=== PATIENT | male | born 1950 | race Caucasian/White ===

== ENCOUNTER 2018-04-19 10:59 | Emergency (ER) | payer OTHER, MEDICARE ==
--- NOTE | 2018-04-19 11:38 | EDM.PDOC ---
ED HPI GENERAL MEDICAL PROBLEM - General Chief Complaint: General Stated Complaint: DIZZY/ FELL /HEAD INJURY Time Seen by Provider: 04/19/18 11:38 Source of Information: Reports: Patient History Limitations: Reports: No Limitations - History of Present Illness INITIAL COMMENTS - FREE TEXT/NARRATIVE: 68-year-old male presents for evaluation and treatment of injuries following a syncopal episode. Reportedly episode happened around 10 AM this morning. Reports he was at work changing a valve when he suddenly felt dizzy and fell backwards hitting his head on concrete. He is reporting a headache at this time. Unsure how long he was passed out for. Patient is currently complaining of a headache, upset stomach, dizziness and nausea. Also reports shortness of breath, that this is more chronic nature. He denies any chest pain, vision changes or any vomiting. Para patient sees a junior designer, Dr. Lang in [place]. He reports a "leaky valve ". Primary care provider in [place] is Dr. Lam. Patients takes aspirin daily. He reports that he had a minor stroke about 5 or 6 months ago reports only his left eye is affected he is not able left-sided deficits from stroke on the right side. Reports in the last year he has had about 3 urinary tract infections. Has a past medical history vertigo. posterior head Pain Score (Numeric/FACES): 4 - Related Data Allergies Allergy/AdvReac Type Severity Reaction Status Date / Time codeine Allergy Other Verified 04/19/18 11:22 Home Meds: Home Meds Diflunisal 1 tab PO BID 04/19/18 [History] Gabapentin [Neurontin] 1 tab PO BEDTIME 04/19/18 [History] Lisinopril 1 tab PO DAILY 04/19/18 [History] Metoprolol Succinate [Toprol XL] 1 tab PO DAILY 04/19/18 [History] Pantoprazole Sodium [Protonix] 40 mg PO DAILY 04/19/18 [History] Sertraline [Zoloft] 50 mg PO DAILY 04/19/18 [History] Tamsulosin HCl [Flomax] 0.4 mg PO DAILY 04/19/18 [History] Past Medical History Cardiovascular History: Reports: Hypertension, SOB on Exertion Other Cardiovascular History: "leaky valve" Respiratory History: Reports: SOB Gastrointestinal History: Reports: GERD Genitourinary History: Reports: UTI, Recurrent Musculoskeletal History: Reports: Arthritis Neurological History: Reports: Vertigo Psychiatric History: Reports: Anxiety - Infectious Disease History Infectious Disease History: Reports: Chicken Pox, Measles - Past Surgical History HEENT Surgical History: Reports: Visual Other HEENT Surgeries/Procedures: vertigo Other Musculoskeletal Surgeries/Procedures:: neck surgery Social & Family History - Tobacco Use Smoking Status *Q: Former Smoker Used Tobacco, but Quit: No - Caffeine Use Caffeine Use: Reports: Coffee - Recreational Drug Use Recreational Drug Use: No ED ROS GENERAL - Review of Systems Review Of Systems: See Below Constitutional: Denies: Fever, Chills HEENT: Denies: Vision Change Respiratory: Reports: Shortness of Breath (chronic) Cardiovascular: Denies: Chest Pain GI/Abdominal: Reports: Nausea. Denies: Abdominal Pain ("upset" stomach), Diarrhea, Hematochezia, Melena, Vomiting : Denies: Dysuria, Hematuria Musculoskeletal: Denies: Neck Pain Neurological: Reports: Dizziness, Headache, Syncope ED EXAM, GENERAL - Physical Exam Exam: See Below Exam Limited By: No Limitations General Appearance: Alert, WD/WN, No Apparent Distress Ears: Normal External Exam, Normal TMs Nose: Normal Inspection, No Blood Throat/Mouth: Normal Inspection, Normal Lips, Normal Voice, No Airway Compromise Head: Normocephalic Neck: Normal Inspection, Supple, Non-Tender, Full Range of Motion. No: Carotid Bruit Respiratory/Chest: No Respiratory Distress, Lungs Clear, Normal Breath Sounds Cardiovascular: Normal Peripheral Pulses, Regular Rate, Rhythm, Diastolic Murmur Neurological: Alert, Oriented, Normal Cognition Psychiatric: Normal Affect, Normal Mood Skin Exam: Warm, Dry, Normal Color EKG INTERPRETATION EKG Date: 04/19/18 Time: 12:36 Rhythm: NSR Rate (Beats/Min): 70 [place]: Normal P-Wave: Present QRS: Normal ST-T: Normal QT: Normal EKG Interpretation Comments: NSR at 70 bpm. First degree AV block. Possible left atrial enlargement. No ischemic changes. Late transition. + LAD. Possible LPFB. No LVH. Incomplete LBBB. QTc within normal limits with a QTc of 454. Reviewed by myself and Dr. Hightower. Course - Vital Signs Last Recorded V/S: Last Vital Signs Temp 98.4 F 04/19/18 11:05 Pulse 88 04/19/18 11:05 Resp 18 04/19/18 11:05 BP 143/85 H 04/19/18 11:05 Pulse Ox 97 04/19/18 11:05 Orthostatic Blood Pressure [ 133/74 Standing] Orthostatic Blood Pressure [ 137/83 Supine] - Orders/Labs/Meds Labs: Laboratory Tests 04/19/18 04/19/18 04/19/18 Range/Units 11:15 11:54 11:54 WBC 6.79 (4.23-9.07) K/mm3 RBC 4.77 (4.63-6.08) M/mm3 Hgb 11.8 L (13.7-17.5) gm/L Hct 36.4 L (40.1-51.0) % MCV 76.3 L (79.0-92.2) fl MCH 24.7 L (25.7-32.2) pg MCHC 32.4 (32.2-35.5) g/dl RDW Std Deviation 42.3 (35.1-43.9) fL Plt Count 199 (163-337) K/mm3 MPV 8.5 L (9.4-12.3) fl Neutrophils % (Manual) 85 H (40-60) % Band Neutrophils % 0 (0-10) % Lymphocytes % (Manual) 13 L (20-40) % Atypical Lymphs % 0 % Monocytes % (Manual) 0 L (2-10) % Eosinophils % (Manual) 1 (0.8-7.0) % Basophils % (Manual) 1 (0.2-1.2) Platelet Estimate Adequate RBC Morph Comment Normal PT 10.8 (9.5-12.1) SECONDS INR 0.99 APTT 23 L (24-31) SECONDS D-Dimer, Quantitative 0.72 H (0.19-0.50) mg/L Sodium (136-145) mEq/L Potassium (3.5-5.1) mEq/L Chloride (98-107) mEq/L Carbon Dioxide (21-32) mEq/L Anion Gap (5-15) BUN (7-18) mg/dL Creatinine (0.7-1.3) mg/dL Est Cr Clr Drug Dosing mL/min Estimated GFR (MDRD) (>60) mL/min BUN/Creatinine Ratio (14-18) Glucose (80-115) mg/dL Calcium (8.5-10.1) mg/dL Total Bilirubin (0.2-1.0) mg/dL AST (15-37) U/L ALT (16-63) U/L Alkaline Phosphatase (46-116) U/L Troponin I (0.00-0.056) ng/mL C-Reactive Protein (<1.0) mg/dL Total Protein (6.4-8.2) g/dl Albumin (3.4-5.0) g/dl Globulin gm/dL Albumin/Globulin Ratio (1-2) Urine Color Yellow (Yellow) Urine Appearance Clear (Clear) Urine pH 6.5 (5.0-8.0) Ur Specific [place] 1.025 (1.005-1.030) Urine Protein 1+ H (Negative) Urine Glucose (UA) Negative (Negative) Urine Ketones Trace H (Negative) Urine Occult Blood Negative (Negative) Urine Nitrite Negative (Negative) Urine Bilirubin 1+ H (Negative) Urine Urobilinogen 0.2 (0.2-1.0) Ur Leukocyte Esterase Negative (Negative) Urine RBC Not seen (0-5) /hpf Urine WBC 0-5 (0-5) /hpf Ur Epithelial Cells 5-10 H (0-5) /hpf Urine Bacteria Rare (FEW) /hpf Urine Mucus Moderate H (FEW) /hpf 04/19/18 04/19/18 Range/Units 11:54 14:05 WBC (4.23-9.07) K/mm3 RBC (4.63-6.08) M/mm3 Hgb (13.7-17.5) gm/L Hct (40.1-51.0) % MCV (79.0-92.2) fl MCH (25.7-32.2) pg MCHC (32.2-35.5) g/dl RDW Std Deviation (35.1-43.9) fL Plt Count (163-337) K/mm3 MPV (9.4-12.3) fl Neutrophils % (Manual) (40-60) % Band Neutrophils % (0-10) % Lymphocytes % (Manual) (20-40) % Atypical Lymphs % % Monocytes % (Manual) (2-10) % Eosinophils % (Manual) (0.8-7.0) % Basophils % (Manual) (0.2-1.2) Platelet Estimate RBC Morph Comment PT (9.5-12.1) SECONDS INR APTT (24-31) SECONDS D-Dimer, Quantitative (0.19-0.50) mg/L Sodium 139 (136-145) mEq/L Potassium 4.0 (3.5-5.1) mEq/L Chloride 104 (98-107) mEq/L Carbon Dioxide 21 (21-32) mEq/L Anion Gap 18.0 H (5-15) BUN 23 H (7-18) mg/dL Creatinine 1.7 H (0.7-1.3) mg/dL Est Cr Clr Drug Dosing 45.69 mL/min Estimated GFR (MDRD) 40 (>60) mL/min BUN/Creatinine Ratio 13.5 L (14-18) Glucose 152 H (80-115) mg/dL Calcium 9.3 (8.5-10.1) mg/dL Total Bilirubin 0.4 (0.2-1.0) mg/dL AST 20 (15-37) U/L ALT 21 (16-63) U/L Alkaline Phosphatase 80 (46-116) U/L Troponin I < 0.017 < 0.017 (0.00-0.056) ng/mL C-Reactive Protein < 0.2 (<1.0) mg/dL Total Protein 7.8 (6.4-8.2) g/dl Albumin 3.7 (3.4-5.0) g/dl Globulin 4.1 gm/dL Albumin/Globulin Ratio 0.9 L (1-2) Urine Color (Yellow) Urine Appearance (Clear) Urine pH (5.0-8.0) Ur Specific [place] (1.005-1.030) Urine Protein (Negative) Urine Glucose (UA) (Negative) Urine Ketones (Negative) Urine Occult Blood (Negative) Urine Nitrite (Negative) Urine Bilirubin (Negative) Urine Urobilinogen (0.2-1.0) Ur Leukocyte Esterase (Negative) Urine RBC (0-5) /hpf Urine WBC (0-5) /hpf Ur Epithelial Cells (0-5) /hpf Urine Bacteria (FEW) /hpf Urine Mucus (FEW) /hpf Meds: Medications Discontinued Medications Generic Name Dose Route Start Last Admin Trade Name Freq PRN Reason Stop Dose Admin Lactated Ringer's 500 mls @ 999 mls/hr 01/02/19 12:00 04/19/18 12:18 Ringers, Lactated IV 04/19/18 12:30 999 mls/hr .BOLUS ONE Administration Lactated Ringer's 1,000 mls @ 100 mls/hr 04/19/18 12:45 04/19/18 12:51 Ringers, Lactated IV 100 mls/hr ASDIRECTED ANTONY Administration Sodium Chloride 100 mls @ 75 mls/hr 04/19/18 13:15 04/19/18 13:25 Normal Saline IV 75 mls/hr ASDIRECTED ANTONY Administration Iopamidol 100 ml 04/19/18 13:06 04/19/18 13:25 [id number] (76%) IVPUSH 04/19/18 13:07 100 ml ONETIME ONE Administration Sodium Chloride 10 ml 04/19/18 12:00 04/19/18 12:18 Saline Flush FLUSH 10 ml ASDIRECTED PRN Administration Keep Vein Open Sodium Chloride 10 ml 04/19/18 13:06 04/19/18 13:25 Saline Flush FLUSH 10 ml ONETIME PRN Administration IV FLUSH - Radiology Interpretation Free Text/Narrative:: Chest: Portable view of the chest was obtained. Comparison: No prior chest x-ray. Heart size is normal. Slight tortuosity of the thoracic aorta is seen. Previous lower cervical spine surgery is seen. Lungs are clear with no acute parenchymal change. Impression: 1. Nothing acute seen on portable chest x-ray. Head CT Technique: Multiple axial sections through the brain were obtained. Intravenous contrast was not utilized. Comparison: No prior intracranial imaging is available. Findings: Ventricles along with basal cisterns and sulci over the convexities are mildly prominent. No abnormal parenchymal densities are seen. No evidence of intracranial hemorrhage. No midline shift or mass effect is seen. Bone window settings were reviewed which show no acute calvarial abnormality. Paranasal sinuses show nothing acute. Impression: 1. Mild generalized atrophy. 2. Nothing acute is appreciated on noncontrast head CT exam. CT chest Technique: Multiple axial sections through the chest were obtained. Intravenous contrast was utilized. Study has been performed as a pulmonary angiogram protocol. Comparison: No prior chest imaging. Findings: Pulmonary arteries are well opacified. No filling defects are seen to indicate pulmonary embolism. Mediastinum and hilar regions show no adenopathy. Mild coronary artery calcification is seen. Heart is enlarged. No pericardial thickening is seen. Small portion of the visualized upper abdominal structures shows vague increased density within the gallbladder compatible with sludge and/or gallstones. Air filled cyst seen within the left upper lung measuring 2.2 cm. Patchy areas of ground-glass opacities are seen within both lungs. Some of this ground-glass appearance has the appearance of fibrosis but difficult to exclude mild areas of scattered infection or mild pulmonary pulmonary vascular congestion as an etiology. No pleural effusions are seen. Bone window settings were reviewed which show scattered degenerative change within the spine with evidence of previous cervical spine surgery. Impression: 1. No findings of pulmonary embolism. 2. Hazy ground-glass appearance scattered throughout both lungs. Some of this appears to represent fibrosis but difficult to exclude scattered areas of infection or pulmonary vascular congestion, please correlate with the patient's symptoms. 3. Vague density within the gallbladder compatible with sludge and/or gallstones. 4. Other incidental findings. - Re-Assessments/Exams Free Text/Narrative Re-Assessment/Exam: 04/19/18 14:51 I reviewed the labs, ekg and imaging with the patient. CT PE study ordered due to elevated trop, no signs of PE. Will have the patient wear a holter monitor x 48 hours and close follow-up with PCP. Upon further discussion sounds as if the dizziness is a chronic problem and he has frequent near syncopal episodes. He is instructed to return to the ER should his symptoms change or worsen. Discharge instructions as documented. Departure - Departure Time of Disposition: 14:52 Disposition: Home, Self-Care 01 Condition: Fair Clinical Impression: Syncope and collapse - Discharge Information *PRESCRIPTION DRUG MONITORING PROGRAM REVIEWED*: No *COPY OF PRESCRIPTION DRUG MONITORING REPORT IN PATIENT IRA: No Instructions: Syncope, [id number] Referrals: Edil Lam Jr, MD [Primary Care Provider] - Forms: ED Department Discharge Additional Instructions: Rest. Make sure you are drinking plenty of fluids. Wear the holter monitor as directed by RT. Follow-up with your PCP within 1 week for a recheck of your symptoms. Please return to the ER should your symptoms change or worsen.
[2018-04-19] MEDS ORDERED: Sodium Chloride 0.9% 10 ML Syringe FLUSH PRN ×2 (12:00→13:06)
[2018-04-19] MEDS ORDERED: Lactated Ringers 500 ML IV ONE (12:00)
[2018-04-19] MEDS ORDERED: Lactated Ringers 1,000 ML IV SCH (12:45)
[2018-04-19] MEDS ORDERED: Iopamidol 755 Mg/ML 100 ML Bottle IVPUSH ONE (13:06)
[2018-04-19] MEDS ORDERED: Sodium Chloride 0.9% 100 ML IV SCH (13:15)
--- NOTE | 2018-04-19 14:13 | CT ---
CT chest Technique: Multiple axial sections through the chest were obtained. Intravenous contrast was utilized. Study has been performed as a pulmonary angiogram protocol. Comparison: No prior chest imaging. Findings: Pulmonary arteries are well opacified. No filling defects are seen to indicate pulmonary embolism. Mediastinum and hilar regions show no adenopathy. Mild coronary artery calcification is seen. Heart is enlarged. No pericardial thickening is seen. Small portion of the visualized upper abdominal structures shows vague increased density within the gallbladder compatible with sludge and/or gallstones. Air filled cyst seen within the left upper lung measuring 2.2 cm. Patchy areas of ground-glass opacities are seen within both lungs. Some of this ground-glass appearance has the appearance of fibrosis but difficult to exclude mild areas of scattered infection or mild pulmonary pulmonary vascular congestion as an etiology. No pleural effusions are seen. Bone window settings were reviewed which show scattered degenerative change within the spine with evidence of previous cervical spine surgery. Impression: 1. No findings of pulmonary embolism. 2. Hazy ground-glass appearance scattered throughout both lungs. Some of this appears to represent fibrosis but difficult to exclude scattered areas of infection or pulmonary vascular congestion, please correlate with the patient's symptoms. 3. Vague density within the gallbladder compatible with sludge and/or gallstones. 4. Other incidental findings. Diagnostic code #3
--- NOTE | 2018-04-19 14:46 | CT ---
Head CT Technique: Multiple axial sections through the brain were obtained. Intravenous contrast was not utilized. Comparison: No prior intracranial imaging is available. Findings: Ventricles along with basal cisterns and sulci over the convexities are mildly prominent. No abnormal parenchymal densities are seen. No evidence of intracranial hemorrhage. No midline shift or mass effect is seen. Bone window settings were reviewed which show no acute calvarial abnormality. Paranasal sinuses show nothing acute. Impression: 1. Mild generalized atrophy. 2. Nothing acute is appreciated on noncontrast head CT exam. Diagnostic code #1 MTDD
--- NOTE | 2018-04-19 14:47 | CR ---
Chest: Portable view of the chest was obtained. Comparison: No prior chest x-ray. Heart size is normal. Slight tortuosity of the thoracic aorta is seen. Previous lower cervical spine surgery is seen. Lungs are clear with no acute parenchymal change. Impression: 1. Nothing acute seen on portable chest x-ray. Diagnostic code #2 MTDD
== END 2018-04-19 15:26 | disposition home or self-care (01) ==
LOC: JD.ED 10:59
DX: R55 Syncope and collapse (principal); I10 Essential (primary) hypertension; F41.9 Anxiety disorder, unspecified; Z79.82 Long term (current) use of aspirin; Z88.5 Allergy status to narcotic agent; Z79.899 Other long term (current) drug therapy; Z87.891 Personal history of nicotine dependence
CPT/HCPCS: 36415; 70450; 71045; 71275; 80053; 81001; 84484; 85007; 85027; 85379; 85610; 85730; 86140; 93005; 93225; 93226; 96360; 96361; 99285; J7030; J7120; Q9967

== ENCOUNTER 2018-05-31 14:51 | Emergency (ER) | payer MEDICARE, BC ==
[2018-05-31] MEDS ORDERED: Sodium Chloride 0.9% 10 ML Syringe FLUSH PRN (15:15)
[2018-05-31] MEDS ORDERED: Sodium Chloride 0.9% 1,000 ML IV SCH (15:15)
--- NOTE | 2018-05-31 15:42 | EDM.PDOC ---
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 The patient has an event monitor on and he felt light headed and short of breath and he had some upper back pain. He was cutting some wood when this happened. He pushed the button on his event monitor and he was called by Dr Maciel to come to the ER. Dr Maciel also called the ER to let us know he was coming in. The patient denies chest pain. He has shortness of breath. He has had shortness of breath for over a month when all this started. He was seen here last month for syncope. It happened at work. He has been having a few other episodes and he is light headed. He had labs, MRI of brain and MRI of the neck, and holter monitor. He did have 60 % stenosis in the right carotid artery. He had a small stroke a couple years ago. A few days ago he had some weakness in his left arm and shaking in his left leg. He has no symptoms like that now. He has no headache, fever, chills or cough. He has been seeing Dr Maciel for this and he is now wearing the holter monitor. He says that he has low back pain at times. Onset: Sudden Duration: Minutes: Location: Reports: Back Quality: Reports: Sharp Severity: Moderate Improves with: Reports: None Worsens with: Reports: None Associated Symptoms: Reports: Shortness of Breath. Denies: Chest Pain, Cough, Fever/Chills, Headaches, Nausea/Vomiting Upper Back Pain Score (Numeric/FACES): 3 - Related Data Allergies Allergy/AdvReac Type Severity Reaction Status Date / Time codeine Allergy Other Verified 05/31/18 15:01 Home Meds: Home Meds Diflunisal 1 tab PO BID 04/19/18 [History] Gabapentin [Neurontin] 1 tab PO BEDTIME 04/19/18 [History] Lisinopril 1 tab PO DAILY 04/19/18 [History] Metoprolol Succinate [Toprol XL] 1 tab PO DAILY 04/19/18 [History] Pantoprazole Sodium [Protonix] 40 mg PO DAILY 04/19/18 [History] Sertraline [Zoloft] 50 mg PO DAILY 04/19/18 [History] Tamsulosin HCl [Flomax] 0.4 mg PO DAILY 04/19/18 [History] Past Medical History Cardiovascular History: Reports: Hypertension, SOB on Exertion, Syncope Other Cardiovascular History: "leaky valve" Respiratory History: Reports: SOB Gastrointestinal History: Reports: GERD Genitourinary History: Reports: UTI, Recurrent Musculoskeletal History: Reports: Arthritis Neurological History: Reports: Vertigo Psychiatric History: Reports: Anxiety - Infectious Disease History Infectious Disease History: Reports: Chicken Pox, Measles - Past Surgical History HEENT Surgical History: Reports: Visual Other HEENT Surgeries/Procedures: vertigo Other Musculoskeletal Surgeries/Procedures:: neck surgery Social & Family History - Tobacco Use Smoking Status *Q: Former Smoker Used Tobacco, but Quit: Yes Month/Year Tobacco Last Used: 3 years ago - Caffeine Use Caffeine Use: Reports: Coffee - Recreational Drug Use Recreational Drug Use: No ED ROS GENERAL - Review of Systems Review Of Systems: See Below Constitutional: Reports: No Symptoms HEENT: Reports: No Symptoms Respiratory: Reports: Shortness of Breath Cardiovascular: Reports: Lightheadedness. Denies: Chest Pain Endocrine: Reports: No Symptoms GI/Abdominal: Reports: No Symptoms : Reports: No Symptoms Musculoskeletal: Reports: No Symptoms ED EXAM, GENERAL - Physical Exam Exam: See Below Exam Limited By: No Limitations General Appearance: Alert, No Apparent Distress Ears: Normal External Exam Nose: Normal Inspection Head: Atraumatic, Normocephalic Neck: Normal Inspection Respiratory/Chest: No Respiratory Distress, Lungs Clear, Normal Breath Sounds Cardiovascular: Regular Rate, Rhythm, No Edema, No Murmur GI/Abdominal: Soft, Non-Tender, No Organomegaly, No Mass Back Exam: Normal Inspection Extremities: Normal Inspection Neurological: Alert, Oriented, No Motor/Sensory Deficits EKG INTERPRETATION EKG Date: 05/31/18 Time: 14:57 Rhythm: NSR Rate (Beats/Min): 90 [place]: LAD-Left [place] Deviation P-Wave: Present QRS: Other (Incomplet bundle branch block) ST-T: Normal QT: Normal Course - Vital Signs Last Recorded V/S: Last Vital Signs Temp 97.4 F 05/31/18 14:58 Pulse 93 05/31/18 14:58 Resp 18 05/31/18 14:58 BP 136/89 05/31/18 14:58 Pulse Ox 96 05/31/18 14:58 - Orders/Labs/Meds Orders: Active Orders 24 hr Category Date Time Status Cardiac Monitoring [RC] . DIRECTED Care 05/31/18 15:15 Active EKG 12 Lead [EKG Documentation Completion] [RC] STAT Care 05/31/18 15:05 Active Peripheral IV Care [RC] . DIRECTED Care 05/31/18 15:16 Active Sodium Chloride 0.9% [Normal Saline] 1,000 ml Med 05/31/18 15:15 Active IV ASDIRECTED Sodium Chloride 0.9% [Saline Flush] Med 05/31/18 15:15 Active 10 ml FLUSH ASDIRECTED PRN Peripheral IV Insertion Adult [OM.PC] Stat Oth 05/31/18 15:15 Ordered Medication Orders Sodium Chloride (Normal Saline) 1,000 mls @ 125 mls/hr IV ASDIRECTED ANTONY Last Admin: 05/31/18 15:28 Dose: 125 mls/hr Sodium Chloride (Saline Flush) 10 ml FLUSH ASDIRECTED PRN PRN Reason: Keep Vein Open Last Admin: 05/31/18 15:28 Dose: 10 ml Labs: Laboratory Tests 05/31/18 05/31/18 Range/Units 15:20 15:20 WBC 4.85 (4.23-9.07) K/mm3 RBC 4.93 (4.63-6.08) M/mm3 Hgb 11.7 L (13.7-17.5) gm/L Hct 37.2 L (40.1-51.0) % MCV 75.5 L (79.0-92.2) fl MCH 23.7 L (25.7-32.2) pg MCHC 31.5 L (32.2-35.5) g/dl RDW Std Deviation 43.2 (35.1-43.9) fL Plt Count 197 (163-337) K/mm3 MPV 8.9 L (9.4-12.3) fl Neut % (Auto) 64.2 (34.0-67.9) % Lymph % (Auto) 21.0 L (21.8-53.1) % [place] % (Auto) 10.7 (5.3-12.2) % Eos % (Auto) 3.5 (0.8-7.0) Baso % (Auto) 0.6 (0.1-1.2) % Neut # (Auto) 3.11 (1.78-5.38) K/mm3 Lymph # (Auto) 1.02 L (1.32-3.57) K/mm3 [place] # (Auto) 0.52 (0.30-0.82) K/mm3 Eos # (Auto) 0.17 (0.04-0.54) K/mm3 Baso # (Auto) 0.03 (0.01-0.08) K/mm3 Sodium 139 (136-145) mEq/L Potassium 4.0 (3.5-5.1) mEq/L Chloride 106 (98-107) mEq/L Carbon Dioxide 22 (21-32) mEq/L Anion Gap 15.0 (5-15) BUN 29 H (7-18) mg/dL Creatinine 1.5 H (0.7-1.3) mg/dL Est Cr Clr Drug Dosing 51.79 mL/min Estimated GFR (MDRD) 46 (>60) mL/min BUN/Creatinine Ratio 19.3 H (14-18) Glucose 131 H (80-115) mg/dL Calcium 8.5 (8.5-10.1) mg/dL Total Bilirubin 0.4 (0.2-1.0) mg/dL AST 15 (15-37) U/L ALT 21 (16-63) U/L Alkaline Phosphatase 90 (46-116) U/L Troponin I < 0.017 (0.00-0.056) ng/mL Total Protein 8.0 (6.4-8.2) g/dl Albumin 3.6 (3.4-5.0) g/dl Globulin 4.4 gm/dL Albumin/Globulin Ratio 0.8 L (1-2) TSH 3rd Generation 3.675 (0.358-3.74) uIU/mL Meds: Medications Generic Name Dose Route Start Last Admin Trade Name Freq PRN Reason Stop Dose Admin Sodium Chloride 1,000 mls @ 125 mls/hr 05/31/18 15:15 05/31/18 15:28 Normal Saline IV 125 mls/hr ASDIRECTED ANTONY Administration Sodium Chloride 10 ml 05/31/18 15:15 05/31/18 15:28 Saline Flush FLUSH 10 ml ASDIRECTED PRN Administration Keep Vein Open - Re-Assessments/Exams Free Text/Narrative Re-Assessment/Exam: 05/31/18 16:13 I ordered an IV NS at 125mL/hr, EKG and labs. His EKG shows a NSR with an incomplete left bundle branch block, LVH and a Q wave in the anterior lead. There was no changes from prior EKG last month. His WBC was normal. His Hgb was low at 11.7. His creatinine was elevated at 1.5. His glucose was elevated at 131. His troponin was negative. His TSH was normal. He feels better now. Dr Maciel sent over the event monitor results and he had a 109 second run of V- tach with symptoms. I feel he needs to go to [place] in [place] where they have cardiology. I talked with Dr Crowder the rib sawyer automobile relocation engineer and he accepted the patient. I also talked with the hospitalist Dr Romero. 05/31/18 16:42 Departure - Departure Time of Disposition: 16:45 Disposition: DC/Tfer to [facility] 02 Reason for Transfer *Q: Other Condition: Serious Clinical Impression: Syncope and collapse, Ventricular tachycardia, Lightheaded Back pain Qualifiers: Back pain location: thoracic back pain Chronicity: acute Back pain laterality: unspecified Qualified Code(s): M54.6 - Pain in thoracic spine Referrals: Edil Lam Jr, MD [Primary Care Provider] - Forms: ED Department Discharge - My Orders Last 24 Hours: My Active Orders 05/31/18 15:05 EKG 12 Lead [EKG Documentation Completion] [RC] STAT 05/31/18 15:15 Cardiac Monitoring [RC] . DIRECTED Sodium Chloride 0.9% [Normal Saline] 1,000 ml IV ASDIRECTED Sodium Chloride 0.9% [Saline Flush] 10 ml FLUSH ASDIRECTED PRN Peripheral IV Insertion Adult [OM.PC] Stat 05/31/18 15:16 Peripheral IV Care [RC] . DIRECTED - Assessment/Plan Last 24 Hours: My Active Orders 05/31/18 15:05 EKG 12 Lead [EKG Documentation Completion] [RC] STAT 05/31/18 15:15 Cardiac Monitoring [RC] . DIRECTED Sodium Chloride 0.9% [Normal Saline] 1,000 ml IV ASDIRECTED Sodium Chloride 0.9% [Saline Flush] 10 ml FLUSH ASDIRECTED PRN Peripheral IV Insertion Adult [OM.PC] Stat 05/31/18 15:16 Peripheral IV Care [RC] . DIRECTED
--- NOTE | 2018-05-31 16:32 | CR ---
Chest: Portable view of the chest was obtained. Comparison: Prior chest x-ray 04/19/[address] chest of 04/19/18. Heart size is normal. Tortuous thoracic aorta is seen. Lungs are clear with no acute parenchymal change. Previous cervical spine surgery is noted. Impression: 1. Incidental findings. Nothing acute is seen. Diagnostic code #2
== END 2018-05-31 17:35 ==
LOC: JD.ED 14:51
DX: R55 Syncope and collapse (principal); R42 Dizziness and giddiness; R00.0 Tachycardia, unspecified; M54.6 Pain in thoracic spine; F41.9 Anxiety disorder, unspecified; K21.9 Gastro-esophageal reflux disease without esophagitis; Z79.899 Other long term (current) drug therapy; Z87.891 Personal history of nicotine dependence; Z88.5 Allergy status to narcotic agent
CPT/HCPCS: 36415; 71045; 80053; 84443; 84484; 85025; 93005; 96360; 96361; 99285; J7040; 93010; 99284

== ENCOUNTER 2018-06-05 14:07 | Emergency (ER) | payer MEDICARE, BC ==
--- NOTE | 2018-06-05 16:30 | CR ---
Chest: Portable view of the chest was obtained. Comparison: Prior chest x-ray of 05/31/18. Heart size and mediastinum are within normal limits for portable technique. Slight tortuosity of the thoracic aorta is stable. Interval AICD placement is noted. Stable evidence of previous cervical spine surgery. Lungs are clear with no acute parenchymal change. Impression: 1. Incidental findings. Nothing acute is seen. Diagnostic code #2
--- NOTE | 2018-06-05 17:56 | EDM.PDOC ---
ED HPI GENERAL MEDICAL PROBLEM - General Chief Complaint: Cardiovascular Problem Stated Complaint: DIZZY Time Seen by Provider: 06/05/18 16:08 Source of Information: Reports: Patient, Family (), RN Notes Reviewed History Limitations: Reports: No Limitations - History of Present Illness INITIAL COMMENTS - FREE TEXT/NARRATIVE: The patient states that he has a long history of feeling shaky and lightheaded, with subsequent syncope. On one occasion, the patient was unconscious for 10 minutes. The patient suffered 3 episodes since 04/19/2018. An exhaustive workup was undertaken, including the patient wearing an event monitor. The patient states that on 05/31/2018, he felt lightheaded and short of breath, along with having some upper back pain. He pushed the button on his event monitor, and was subsequently contacted by his Oceanology Teacher, Dr. Maciel, instructing the patient to come to the ED. Medical records indicate that the patient was seen in this ED on 05/31/2018. A CBC, CMP, troponin level, TSH, and ECG were performed, and were all unremarkable , however, Dr. Maciel sent over the event monitor results, demonstrating a 109 second run of ventricular tachycardia. The patient was subsequently transferred to [facility]. Medical records from [facility] indicate that the patient underwent a coronary angiogram and left heart catheterization on 06/01/2017, finding an 80% proximal stenosis of the first diagonal branch of the LAD, but no other significant abnormalities. It was felt unlikely that this stenosis was responsible for the patient's dysrhythmias. A dual-chamber Medtronic AICD was then placed on 06/02/2018. The patient was discharged home on 06/03/2018. The patient now returns to the ED, stating that he felt shaky and numb on and off yesterday, then developed significant lightheadedness today. He is concerned , because these symptoms are the same symptoms that he had previously, attributed to ventricular tachycardia. He contacted his Oceanology Teacher's office, and instructed him to come to the ED to have his AICD interrogated. The patient states that he had previously been on metoprolol 25 mg per day, but this was increased to 50 mg BID after the placement of his AICD. He states that he took 50 mg yesterday morning, but due to his symptoms, he took only 25 mg last night. He took another 50 mg this morning. Here in the ED, the patient is asymptomatic. His initial BP was 141/88 with a HR of 55. The patient's PCP is Dr. Edil Lam. - Related Data Allergies Allergy/AdvReac Type Severity Reaction Status Date / Time codeine Allergy Other Verified 06/05/18 14:43 Home Meds: Home Meds Gabapentin [Neurontin] 300 mg PO BEDTIME 04/19/18 [History] Lisinopril 20 mg PO DAILY 04/19/18 [History] Pantoprazole Sodium [Protonix] 40 mg PO DAILY 04/19/18 [History] Sertraline [Zoloft] 50 mg PO DAILY 04/19/18 [History] Tamsulosin HCl [Flomax] 0.4 mg PO DAILY 04/19/18 [History] Metoprolol Succinate [Toprol Xl] 50 mg PO BID 06/05/18 [History] Rosuvastatin [Crestor] 10 mg PO DAILY 06/05/18 [History] Past Medical History Cardiovascular History: Reports: Arrhythmia (Nonsustained ventricular tachycardia), CAD, High Cholesterol, Hypertension, Other (See Below) ( 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), Other (See Below) (Coronary angiogram x 2, most recently 06/01/[address] [facility]) Neurological Surgical History: Reports: C-Spine (C5-C7 ACDF), Lumbar Spine ( laminectomy) Musculoskeletal Surgical History: Reports: Knee Replacement (bilateral), Shoulder Surgery (left, arthroscopic) Social & Family History - Tobacco Use Smoking Status *Q: Former Smoker Years of Tobacco use: 51 Packs/Tins Daily: 1 Month/Year Tobacco Last Used: Quit 2015 - Caffeine Use Caffeine Use: Reports: Coffee - Alcohol Use Alcohol Use History: No - Recreational Drug Use Recreational Drug Use: No - Living Situation & Occupation Living situation: Reports: , with Spouse Occupation: Retired ED ROS GENERAL - Review of Systems Review Of Systems: ROS reveals no pertinent complaints other than HPI. ED EXAM, GENERAL - Physical Exam Exam: See Below Exam Limited By: No Limitations General Appearance: Alert, WD/WN, No Apparent Distress Eye Exam: Bilateral Eye: EOMI, Normal Inspection Ears: Normal External Exam, Hearing Grossly Normal Nose: Normal Inspection Throat/Mouth: Normal Inspection, Normal Lips, Normal Voice, No Airway Compromise Head: Atraumatic, Normocephalic Neck: Normal Inspection, Full Range of Motion Respiratory/Chest: No Respiratory Distress, Lungs Clear, Normal Breath Sounds, No Accessory Muscle Use Cardiovascular: Normal Peripheral Pulses, Regular Rate, Rhythm, No Edema, No Gallop, No JVD, No Murmur, No Rub Peripheral Pulses: 4+: Radial (L), Radial (R) GI/Abdominal: Normal Bowel Sounds, Soft, Non-Tender, No Organomegaly, No Distention, No Abnormal Bruit, No Mass (Male) Exam: Deferred Rectal (Males) Exam: Deferred Back Exam: Normal Inspection, Full Range of Motion, NT Extremities: Normal Inspection, Normal Range of Motion, No Pedal Edema, Normal Capillary Refill Neurological: Alert, Oriented, Normal Cognition, No Motor/Sensory Deficits Psychiatric: Normal Affect Skin Exam: Warm, Dry, Intact, Normal Color, No Rash EKG INTERPRETATION EKG Date: 06/05/18 Time: 14:48 Rhythm: Other (Sinus bradycardia) Rate (Beats/Min): 58 [place]: LAD-Left [place] Deviation (Likely 2 LAFB) P-Wave: Present (1 AVB) QRS: Wide (Nonspecific intraventricular conduction delay. Late transition.) ST-T: Normal QT: Normal Comparison: No Change (05/31/2018) Course - Vital Signs Last Recorded V/S: Last Vital Signs Temp 35.7 C 06/05/18 14:43 Pulse 59 L 06/05/18 16:25 Resp 18 06/05/18 14:43 BP 139/85 06/05/18 16:25 Pulse Ox 98 06/05/18 14:43 - Orders/Labs/Meds Orders: Active Orders 24 hr Category Date Time Status EKG Documentation Completion [RC] STAT Care 06/05/18 14:51 Active Labs: Laboratory Tests 06/05/18 06/05/18 Range/Units 15:25 15:25 WBC 5.04 (4.23-9.07) K/mm3 RBC 4.70 (4.63-6.08) M/mm3 Hgb 11.2 L (13.7-17.5) gm/L Hct 35.0 L (40.1-51.0) % MCV 74.5 L (79.0-92.2) fl MCH 23.8 L (25.7-32.2) pg MCHC 32.0 L (32.2-35.5) g/dl RDW Std Deviation 42.5 (35.1-43.9) fL Plt Count 170 (163-337) K/mm3 MPV 9.1 L (9.4-12.3) fl Neut % (Auto) 61.9 (34.0-67.9) % Lymph % (Auto) 19.8 L (21.8-53.1) % [place] % (Auto) 12.1 (5.3-12.2) % Eos % (Auto) 5.6 (0.8-7.0) Baso % (Auto) 0.4 (0.1-1.2) % Neut # (Auto) 3.12 (1.78-5.38) K/mm3 Lymph # (Auto) 1.00 L (1.32-3.57) K/mm3 [place] # (Auto) 0.61 (0.30-0.82) K/mm3 Eos # (Auto) 0.28 (0.04-0.54) K/mm3 Baso # (Auto) 0.02 (0.01-0.08) K/mm3 Manual Slide Review Abnormal smear Sodium 140 (136-145) mEq/L Potassium 4.2 (3.5-5.1) mEq/L Chloride 106 (98-107) mEq/L Carbon Dioxide 24 (21-32) mEq/L Anion Gap 14.2 (5-15) BUN 21 H (7-18) mg/dL Creatinine 1.2 (0.7-1.3) mg/dL Est Cr Clr Drug Dosing 64.73 mL/min Estimated GFR (MDRD) 60 (>60) mL/min BUN/Creatinine Ratio 17.5 (14-18) Glucose 100 (80-115) mg/dL Calcium 8.9 (8.5-10.1) mg/dL Magnesium 2.1 (1.8-2.4) mg/dl Total Bilirubin 0.3 (0.2-1.0) mg/dL AST 22 (15-37) U/L ALT 22 (16-63) U/L Alkaline Phosphatase 86 (46-116) U/L Troponin I < 0.017 (0.00-0.056) ng/mL Total Protein 7.5 (6.4-8.2) g/dl Albumin 3.6 (3.4-5.0) g/dl Globulin 3.9 gm/dL Albumin/Globulin Ratio 0.9 L (1-2) - Re-Assessments/Exams Free Text/Narrative Re-Assessment/Exam: 06/05/18 17:47 The patient's AICD was interrogated, showing 0 episodes of ventricular tachycardia or other dysrhythmias. The patient's basic rate is set at 50 bpm[address] Case discussed with Dr. Crowder, Oceanology Teacher cone chocolate dipper at [facility], at 17: 42. He was familiar with the patient's case. He felt that the patient's AICD base rate may need to be increased from 50 bpm to 60 bpm, and in the meantime, the patient can continue on metoprolol 50 mg QAM and 25 mg QPM. Because the interrogation showed no episodes of ventricular tachycardia, or other abnormal rhythms, the patient's symptoms are not due to a dysrhythmia. It is unclear if they are due to his blood pressure medications or not, and continue outpatient evaluation will be needed. He recommended that the patient follow-up later this week, if possible, or early next week. 06/05/18 17:56 The above plan of care was discussed with the patient and his . The patient has an appointment to follow-up with Dr. Alberto on 06/19/2018, but will see if he can get in later this week. Departure - Departure Time of Disposition: 17:56 Disposition: Home, Self-Care 01 Condition: Fair Clinical Impression: Lightheaded - Discharge Information *PRESCRIPTION DRUG MONITORING PROGRAM REVIEWED*: Not Applicable *COPY OF PRESCRIPTION DRUG MONITORING REPORT IN PATIENT IRA: Not Applicable Instructions: Dizziness, [id number] Referrals: Edil Lam Jr, MD [Primary Care Provider] - Ward Alberto MD [Ordering Only Provider] - Forms: ED Department Discharge Additional Instructions: You were seen in the emergency room for symptoms of shakiness, numbness, and lightheadedness. Evaluation in the ER included interrogation of your Medtronic AICD, which showed no abnormal rhythms. Your case was discussed with the Oceanology Teacher Dr. Crowder. He recommended that you remain on metoprolol 50 mg in the morning and 25 mg in the evening. He recommended that you call Dr. Alberto's office in the morning, to see if you can be seen late this week or early next week. The base rate of your AICD may need to be increased from 50 bpm to 60 bpm. Further evaluation of the cause of your symptoms may need to be undertaken. If any other problems, please do not hesitate to return to the ER. - My Orders Last 24 Hours: My Active Orders 06/05/18 14:51 EKG Documentation Completion [RC] STAT - Assessment/Plan Last 24 Hours: My Active Orders 06/05/18 14:51 EKG Documentation Completion [RC] STAT
== END 2018-06-05 18:05 | disposition home or self-care (01) ==
LOC: JD.ED 14:07
DX: R42 Dizziness and giddiness (principal); K21.9 Gastro-esophageal reflux disease without esophagitis; F41.9 Anxiety disorder, unspecified; Z88.5 Allergy status to narcotic agent; Z79.899 Other long term (current) drug therapy; Z87.891 Personal history of nicotine dependence; Z86.73 Personal history of transient ischemic attack (TIA), and cerebral infarction without residual deficits
CPT/HCPCS: 36415; 71045; 71045-26; 80053; 83735; 84484; 85025; 93005; 93010; 99283; 99284-25